=== PATIENT | male | born 1985 | race Caucasian/White ===

== ENCOUNTER 2016-11-21 17:36 | Emergency (ER) | payer SELFPAY ==
[~2016-11-21] VITALS: Ht 172.7 cm; Wt 85.5 kg
[~2016-11-21 17:36] MED LIST: NOHOMEMEDS; OMEPRAZOLE40 M1 PO
[2016-11-21 19:18] LABS: HEMATOCRIT 42.3 % (38.0-50.0); MCH 30.6 PG (29.0-34.0); MCV 87.6 FL (86-99); MEAN PLAT.VOLUME 9.9 uM^3 (9.0-12.4); PLATELET COUNT 152 K/uL (156-360); RBC DIS.WIDTH-CV 12.7 % (11.8-14.6); RED BLOOD COUNT 4.83 M/uL (4.00-5.50); WHITE BLOOD COUNT 8.2 K/uL (4.1-10.2)
[2016-11-21 19:27] LABS: CHLORIDE 110 mEq/L (99-109); POTASSIUM 4.2 mEq/L (3.7-5.4); SODIUM 143 mEq/L (136-147)
[2016-11-21 19:29] LABS: GLUCOSE 83 mg/dL (70-99)
[2016-11-21 19:30] LABS: ANION GAP 8 MEQ/L (2-14)
[2016-11-21 19:31] LABS: TOTAL BILIRUBIN 0.4 mg/dL (0.0-1.0)
[2016-11-21 19:34] LABS: ALKALINE PHOSPHATASE 63 IU/L (3-129); GFR ESTIMATE (CALCULATED) > 59 mL/min/; UREA NITROGEN (BUN) 13 mg/dL (9-23)
[2016-11-21 19:36] LABS: LIPASE 11 U/L (1.0-51.0)
[2016-11-21] MEDS ORDERED: SKELAXIN800 MG PO (20:58)
[2016-11-21] MEDS ORDERED: NAPROXEN500 MG PO (20:58)
[2016-11-21 21:21] VITALS: BP 119/76
== END 2016-11-21 21:27 | disposition home or self-care (01) ==
LOC: EME 17:36
PROVIDERS: Physician Assistant
DX: S30.0XXA Contusion of lower back and pelvis, initial encounter (principal); M54.2 Cervicalgia; V49.40XA Driver injured in collision with unspecified motor vehicles in traffic accident, initial encounter; Z87.891 Personal history of nicotine dependence
CPT/HCPCS: 74177; 80053; 81003; 83690; 85027; 99281; 99285; J2270; J2405; J7040